=== PATIENT | female | born 1980 | race African-American/Black ===

== ENCOUNTER 2018-10-07 09:48 | Day surgery (SDC) | payer OTHER ==
[~2018-10-07] VITALS: Ht 170.2 cm; Wt 74.1 kg
[~2018-10-07 09:48] MED LIST: LR 1,000 ML IV ONE; MAGN100T PO
[2018-10-07 10:15] LABS: HEMOGLOBIN 12.1 g/dl (12.0-15.5); MEAN CORPUSCULAR HEMOGLOBIN 26.6 pg (27.0-33.0); MEAN CORPUSCULAR HGB CONC 34.6 g/dl (32.0-36.5); MEAN CORPUSCULAR VOLUME 76.9 fl (80.0-96.0); PLATELET COUNT, AUTOMATED 326 10^3/uL (150-450); RED BLOOD COUNT 4.55 10^6/uL (4.00-5.40); WHITE BLOOD COUNT 4.4 10^3/uL (4.0-10.0)
[2018-10-07 10:40] LABS: HCG, SERUM QUALITATIVE NEGATIVE (NEGATIVE)
[2018-10-07] MEDS ORDERED: ONDANSETRON 4MG/2ML VIAL (J2405) As Ordered ONE (13:13)
[2018-10-07] MEDS ORDERED: LIDOCAINE 2% INJ 100 MG/5 ML SDV (FOR ANES.) As Ordered ONE (13:13)
[2018-10-07] MEDS ORDERED: PROPOFOL 200 MG/20 ML VIAL As Ordered ONE (13:13)
[2018-10-07] MEDS ORDERED: dexameTHASONE 4 MG/ML 1ML VIAL (J1100) As Ordered ONE (13:13)
[2018-10-07] MEDS ORDERED: fentaNYL 100 MCG/2 ML INJECTION (J3010) As Ordered ONE (13:16)
[2018-10-07] MEDS ORDERED: MIDAZOLAM INJ 2 MG/2 ML VIAL (J2250) As Ordered ONE (13:16)
[2018-10-07] MEDS ORDERED: LIDOCAINE W/EPINEPHRINE 1% 20ML VIAL As Ordered ONE (13:36)
[2018-10-07] MEDS ORDERED: IODINE STRONG SOLN 15 ML BTL As Ordered ONE (13:36)
[2018-10-07] MEDS ORDERED: ePHEDrine SULFATE 25 MG/5 ML(5MG/ML) SYRINGE As Ordered ONE (14:07)
[2018-10-07] MEDS ORDERED: METOCLOPRAMIDE INJ 10MG/2ML VIAL (J2765) As Ordered ONE (14:12)
[2018-10-07] MEDS ORDERED: KETOROLAC 60 MG/2 ML VIAL (J1885) As Ordered ONE (14:14)
[2018-10-07] MEDS ORDERED: LR 1,000 ML IV SCH (14:45)
[2018-10-07] MEDS ORDERED: fentaNYL 100 MCG/2 ML INJECTION (J3010) IV PRN (14:45)
[2018-10-07] MEDS ORDERED: MEPERIDINE INJ 25 MG/ML VIAL (J2175) IV PRN (14:45)
[2018-10-07] MEDS ORDERED: METOCLOPRAMIDE INJ 10MG/2ML VIAL (J2765) IV PRN (14:45)
[2018-10-07] MEDS ORDERED: ONDANSETRON 4MG/2ML VIAL (J2405) IV PRN (14:45)
[2018-10-07] MEDS ORDERED: PERCOCET 5MG/325MG TAB PO PRN (14:45)
[2018-10-07 16:05] VITALS: BP 100/71
[2018-10-07] MEDS ORDERED: KETOROLAC 30 MG/ML VIAL (J1885) IV PRN (20:00)
--- NOTE | 2018-10-08 14:38 | RO ---
DATE OF PROCEDURE: 10/07/2018 PREOPERATIVE DIAGNOSIS: Cervical dysplasia. POSTOPERATIVE DIAGNOSIS: Cervical dysplasia. PROCEDURE: Loop electrosurgical excision procedure. SURGEON: Chadd Thomason DO MULE PACKER: None. ANESTHESIA: General. FLUID: 500 mL. URINE OUTPUT: 50 mL. ESTIMATED BLOOD LOSS: 2 mL. COMPLICATIONS: None. ANTIBIOTICS: None indicated. DETAILED PROCEDURE DESCRIPTION: The risks, benefits, indications and alternative of the procedure were reviewed with the patient and informed consent was obtained. The patient was taken to the operating room where general anesthesia was obtained without difficulty. The patient was then placed in the lithotomy position using Momo stirrups. The patient was then prepped and draped in the usual sterile fashion. The bladder was drained using an in and out catheter. A surgical time out was then performed and the patient's identity and planned procedure were verified with the operative team. A sterile Graves speculum was then placed into the vagina. The cervix was visualized. A paracervical block was then performed using approximately 10 mL of lidocaine with epinephrine. Lugol's solution was then copiously applied to the cervix which highlighted a lesion from about the 11 o'clock to the 3 o'clock portion of the cervix. The LEEP device was then set to 60/60 blend and activated. The loop electrocautery wire was then passed across the external cervical os in multiple passes. Production of an adequate tissue sample was obtained and was sent to pathology for review. Superficial electrocoagulation of the cervical stroma was then performed and excellent hemostasis was achieved. All instruments were then removed from the patient's vagina. At the completion of the case the sponge, instrument and needle counts were correct times two. The patient tolerated the procedure well and was taken to the postanesthesia care unit (PACU) in stable condition. JESSICA
== END 2018-10-07 16:05 | disposition home or self-care (01) ==
LOC: M SDC 09:48
PROVIDERS: ATTEND Obstetrics & Gynecology
DX: N87.9 Dysplasia of cervix uteri, unspecified (principal); K21.9 Gastro-esophageal reflux disease without esophagitis; Z79.899 Other long term (current) drug therapy; G47.30 Sleep apnea, unspecified
CPT/HCPCS: 36415; 57522; 84703; 85027; 88307; J1100; J1885; J2250; J2405; J2765; J3010